=== PATIENT | male | born 1990 | race Two or more races ===

== ENCOUNTER 2018-01-20 17:59 | Emergency (ER) | payer SELFPAY ==
[~2018-01-20] VITALS: Ht 180.3 cm; Wt 86.2 kg
--- NOTE | 2018-01-20 18:21 | Emergency Room Report ---
History of Present Illness General Chief Complaint: Dyspnea/Respdistress Source: Patient Present Illness HPI Patient a 27 year-old male presented after increased generalized rash. The patient was noted to have prior history of back acne. He reports having increased the itchy to the lower back. He denies any fever. He reports having increased told breathing which was associated with a nonproductive cough. The patient reports recent antibiotic use. He denies any abdominal pain or vomiting or diarrhea. He denies any leg pain or swelling. He denies any chest discomfort. Allergies: Coded Allergies: No Known Allergies (Unverified , 01/20/18) Patient History Past Medical History: see triage record Reviewed Nursing Documentation: PMH: Agreed; PSxH: Agreed Nursing Documentation-PMH Past Medical History: No Stated History Review of Systems All Other Systems: negative except mentioned in HPI Physical Exam Vital Signs Date Time Temp Pulse Resp B/P (MAP) Pulse Ox O2 Delivery O2 Flow Rate FiO2 01/20/18 18:03 97.3 96 19 136/81 97 Room Air Sp02 EP Interpretation: reviewed, normal General Appearance: normal inspection, well appearing, no apparent distress, alert, GCS 15 Head: atraumatic ENT: normal ENT inspection, hearing grossly normal, normal voice Neck: normal inspection, full range of motion, supple, no bony tend Respiratory: normal inspection, lungs clear, normal breath sounds, no respiratory distress, no retraction, no wheezing Cardiovascular #1: regular rate, rhythm, no edema Gastrointestinal: normal inspection, normal bowel sounds, non tender, soft, no guarding, no hernia Genitourinary: no CVA tenderness Musculoskeletal: normal inspection, back normal, normal range of motion Neurologic: normal inspection, alert, responsive, speech normal Psychiatric: normal inspection, judgement/insight normal, mood/affect normal Skin: normal inspection, normal color, no rash, other - back acneiform lesions , no erythema or urticaria Medical Decision Making Diagnostic Impression: Primary Impression: Bronchitis ER Course Patient presented for shortness of breath. Differential included but was not limited to anemia, pneumonia, pneumothorax, myocardial infarction, pericardial effusion, congestive heart failure, acidosis. Because of complexity of patient' s case laboratory testing and imaging studies were ordered.The patient appears to have a benign exam. The patient was given breathing treatment with improvement in his symptoms. Patient's rash appears to be excoriated acne. Patient was advised outpatient dermatology follow-up. The patient is advised to return if he began having worsening difficulty breathing or other concerns.The patient is given prescription for albuterol as well as antitching and oral steroid. Last Vital Signs Date Time Temp Pulse Resp B/P (MAP) Pulse Ox O2 Delivery O2 Flow Rate FiO2 01/20/18 18:03 97.3 96 19 136/81 97 Room Air Status: improved Disposition: HOME, SELF-CARE Condition: Stable Scripts Hydroxyzine HCl (Hydroxyzine HCl) 10 Mg Tablet 10 MG ORAL EVERY 6 HOURS, #20 TAB 0 Refills Prov: Jerrod Gastelum MD 01/20/18 Prednisone* (PREDNISONE*) 20 Mg Tablet 40 MG ORAL DAILY, #10 TAB Prov: Jerrod Gastelum MD 01/20/18 Albuterol Sulfate* (ALBUTEROL SULFATE MDI*) 8.5 Gm Hfa.aer.ad 2 PUFF INH Q6H, #1 EA 0 Refills Prov: Jerrod Gastelum MD 01/20/18 Referrals: NOT CHOSEN IPA/,REFERRING (PCP) Jerrod Gastelum MD Jan 20, 2018 18:21
[2018-01-20] MEDS ORDERED: PREDNISONE20 MG ORAL (18:23)
[2018-01-20] MEDS ORDERED: ALBUTEROL SULF8.5 GM INH (18:23)
[2018-01-20] MEDS ORDERED: VISTARIL10 MG ORAL (18:23)
[2018-01-20 18:25] VITALS: BP 136/81
[2018-01-20] MEDS ORDERED: Albuterol/Ipratropium 3ml neb HHN ONE (18:30)
[2018-01-20 19:08] VITALS: BP 130/78
== END 2018-01-20 19:08 | disposition home or self-care (01) ==
LOC: EMR 18:13
DX: J40 Bronchitis, not specified as acute or chronic (principal)
CPT/HCPCS: 99283; 99284; J7620